=== PATIENT | female | born 1945 | race Caucasian/White ===

== ENCOUNTER → 2017-11-08 10:03 | Outpatient (CLI) | payer MEDICARE ==
[~2017-11-08 10:03] MED LIST: ADVAIR 500/501 DISK INH; ATIVAN0.5 MG PO; CYCLOBENZAPRINE10 MG PO; ESTRACE 0.5 MG0.5 MG PO; HCTZ25 MG PO; LISINOPRIL10 MG PO; PROAIR HFA8.5 GM INH; PROTONIX40 MG PO; SINGULAIR10 MG PO; XALATAN 0.0052.5 ML LEFT EYE; ZYRTEC10 MG PO
[2017-11-08 11:02] VITALS: BP 139/79
== END | disposition home or self-care (01) ==
LOC: D.OPS 10:03
DX: E87.1 Hypo-osmolality and hyponatremia (principal)

== ENCOUNTER 2017-12-07 22:05 | Inpatient (IN) | payer MEDICARE ==
[~2017-12-07] VITALS: Ht 165.1 cm; Wt 46.1 kg
[2017-12-07 22:40] LABS: APPEARANCE CLEAR (CLEAR); BILIRUBIN NEGATIVE (NEGATIVE); COLOR YELLOW (YELLOW); GLUCOSE NEGATIVE (NEGATIVE); KETONE NEGATIVE (NEGATIVE); NITRITE NEGATIVE (NEGATIVE); PROTEIN NEGATIVE (NEGATIVE); UROBILINOGEN NORMAL (NORMAL)
[2017-12-07 23:13] LABS: BASOPHILS 0.3 % (0-2); EOSINOPHILS 0.9 % (0-7); HEMATOCRIT 32.2 % (36.0-48.0); HEMOGLOBIN 11.3 g/dL (12-16); LYMPHOCYTES 21.3 % (15-50); MCH 30.7 pg (26.0-34.0); MCHC 35.1 g/dL (31.0-37.0); MCV 87.5 fL (80.0-100.0); MEAN PLATELET VOLUME 10.4 fL (7.4-10.4); MONOCYTES 8.2 % (2-11); NEUTROPHILS 69.3 % (40-80); PLATELET COUNT 264 10x3/uL (130-400); RBC 3.68 10x6/uL (4.00-5.40); RDW 12.3 % (11.5-14.5); WBC 5.8 10x3/uL (4.8-10.8)
[2017-12-07 23:25] LABS: ALBUMIN 3.7 g/dL (3.4-5.0); ALKALINE PHOSPHATASE 56 U/L (46-116); ALT (SGPT) 15 U/L (10-68); CALC OSMOLALITY 252 mosm/kg (275-300); CALCIUM 8.5 mg/dL (8.5-10.1); CARBON DIOXIDE 25.6 mmol/L (21.0-32.0); CHLORIDE - SERUM 92 mmol/L (98-107); CREATININE - SERUM 0.5 mg/dL (0.6-1.3); GLUCOSE 113 mg/dL (74-106); POTASSIUM - SERUM 3.1 mmol/L (3.5-5.1); PROTEIN - SERUM 6.8 g/dL (6.4-8.2); SODIUM 127 mmol/L (136-145); UREA NITROGEN 5 mg/dL (7-18); eGFR NON AFRICAN AMERICAN > 90 mL/min (90-120)
[2017-12-07 23:57] LABS: CREATINE KINASE 94 UL (21-215)
[2017-12-08] LABS: TROPONIN-I < 0.017 ng/mL (0.000-0.060)
[2017-12-08 00:53] LABS: AMYLASE - SERUM 32 U/L (25-115)
[2017-12-08 00:55] LABS: LIPASE 49 U/L (73-393)
[2017-12-08] MEDS ORDERED: ADVAIR 500/501 DISK INH (06:01)
[2017-12-08] MEDS ORDERED: ATIVAN0.5 MG PO (06:01)
[2017-12-08] MEDS ORDERED: SINGULAIR10 MG PO (06:01)
[2017-12-08] MEDS ORDERED: PROAIR HFA8.5 GM INH (06:01)
[2017-12-08] MEDS ORDERED: ESTRACE 0.5 MG0.5 MG PO (06:02)
[2017-12-08] MEDS ORDERED: XALATAN 0.0052.5 ML LEFT EYE (06:02)
[2017-12-08] MEDS ORDERED: ZYRTEC10 MG PO (06:02)
[2017-12-08] MEDS ORDERED: CYCLOBENZAPRINE10 MG PO (06:03)
[2017-12-08 08:33] VITALS: BP 142/68
[2017-12-08 13:06] VITALS: Ht 165.1 cm; Wt 46.1 kg
[2017-12-08 13:08] VITALS: BP 146/72
[2017-12-08 15:23] VITALS: BP 147/67
[2017-12-08 20:00] VITALS: BP 143/75
[2017-12-08] MEDS ORDERED: HCTZ25 MG PO (22:43)
[2017-12-08 23:22] LABS: CKMB 1.5 U/L (0.0-3.6); CREATINE KINASE 158 UL (21-215)
[2017-12-08 23:23] LABS: TROPONIN-I < 0.017 ng/mL (0.000-0.060)
[2017-12-09 04:00] VITALS: BP 138/70
[2017-12-09 05:28] LABS: BASOPHILS 0.4 % (0-2); EOSINOPHILS 2.6 % (0-7); HEMATOCRIT 33.5 % (36.0-48.0); HEMOGLOBIN 11.4 g/dL (12-16); LYMPHOCYTES 31.4 % (15-50); MCH 30.4 pg (26.0-34.0); MCV 89.3 fL (80.0-100.0); MEAN PLATELET VOLUME 11.2 fL (7.4-10.4); MONOCYTES 9.8 % (2-11); NEUTROPHILS 55.8 % (40-80); PLATELET COUNT 241 10x3/uL (130-400); RBC 3.75 10x6/uL (4.00-5.40); RDW 12.6 % (11.5-14.5); WBC 5.1 10x3/uL (4.8-10.8)
[2017-12-09 05:51] LABS: ALBUMIN 3.2 g/dL (3.4-5.0); ALKALINE PHOSPHATASE 46 U/L (46-116); ALT (SGPT) 15 U/L (10-68); CALC OSMOLALITY 266 mosm/kg (275-300); CALCIUM 8.2 mg/dL (8.5-10.1); CARBON DIOXIDE 23.6 mmol/L (21.0-32.0); CHLORIDE - SERUM 104 mmol/L (98-107); CREATININE - SERUM 0.5 mg/dL (0.6-1.3); GLUCOSE 90 mg/dL (74-106); PROTEIN - SERUM 6.2 g/dL (6.4-8.2); SODIUM 135 mmol/L (136-145); UREA NITROGEN 5 mg/dL (7-18); eGFR NON AFRICAN AMERICAN > 90 mL/min (90-120)
[2017-12-09 05:53] LABS: POTASSIUM - SERUM 2.9 mmol/L (3.5-5.1)
[2017-12-09 06:07] LABS: CREATINE KINASE 69 UL (21-215)
[2017-12-09 06:08] LABS: TROPONIN-I < 0.017 ng/mL (0.000-0.060)
[2017-12-09 09:56] VITALS: BP 132/63
[2017-12-09 12:23] VITALS: BP 159/75
[2017-12-09 16:59] VITALS: BP 163/77
[2017-12-09 20:33] VITALS: BP 158/74
[2017-12-10 00:41] VITALS: BP 161/71
[2017-12-10 05:50] VITALS: BP 157/73
[2017-12-10 08:13] VITALS: BP 154/71
[2017-12-10 11:25] VITALS: BP 146/69
[2017-12-10 11:58] LABS: CALC OSMOLALITY 266 mosm/kg (275-300); CALCIUM 8.1 mg/dL (8.5-10.1); CARBON DIOXIDE 25.7 mmol/L (21.0-32.0); CHLORIDE - SERUM 101 mmol/L (98-107); CREATININE - SERUM 0.6 mg/dL (0.6-1.3); GLUCOSE 91 mg/dL (74-106); SODIUM 135 mmol/L (136-145); UREA NITROGEN 4 mg/dL (7-18); eGFR NON AFRICAN AMERICAN > 90 mL/min (90-120)
[2017-12-10 11:59] LABS: POTASSIUM - SERUM 3.7 mmol/L (3.5-5.1)
[2017-12-10] MEDS ORDERED: LISINOPRIL10 MG PO (12:53)
== END 2017-12-10 14:50 | disposition home or self-care (01) | DRG 641 ==
LOC: D.ER 22:05 → D.M2 12-08 04:44
PROVIDERS: Family Medicine; Nurse Practitioner Family
DX: E87.1 Hypo-osmolality and hyponatremia (principal); I10 Essential (primary) hypertension; E87.6 Hypokalemia; K59.09 Other constipation; J44.9 Chronic obstructive pulmonary disease, unspecified

== ENCOUNTER 2017-12-21 20:51 | Emergency (ER) | payer MEDICARE ==
[~2017-12-21 20:51] MED LIST changes: -PROTONIX40 MG PO
[2017-12-21 23:22] LABS: BASOPHILS 0.5 % (0-2); EOSINOPHILS 2.6 % (0-7); HEMATOCRIT 37.2 % (36.0-48.0); HEMOGLOBIN 12.7 g/dL (12-16); LYMPHOCYTES 22.1 % (15-50); MCH 30.8 pg (26.0-34.0); MCHC 34.1 g/dL (31.0-37.0); MCV 90.3 fL (80.0-100.0); MEAN PLATELET VOLUME 10.9 fL (7.4-10.4); MONOCYTES 9.5 % (2-11); NEUTROPHILS 65.3 % (40-80); RBC 4.12 10x6/uL (4.00-5.40); RDW 12.9 % (11.5-14.5); WBC 6.6 10x3/uL (4.8-10.8)
[2017-12-21 23:26] LABS: PLATELET COUNT 309 10x3/uL (130-400)
[2017-12-21 23:37] LABS: ALBUMIN 4.1 g/dL (3.4-5.0); ALKALINE PHOSPHATASE 75 U/L (46-116); ALT (SGPT) 20 U/L (10-68); CALC OSMOLALITY 272 mosm/kg (275-300); CALCIUM 9.1 mg/dL (8.5-10.1); CARBON DIOXIDE 29.1 mmol/L (21.0-32.0); CHLORIDE - SERUM 100 mmol/L (98-107); CREATININE - SERUM 0.6 mg/dL (0.6-1.3); GLUCOSE 103 mg/dL (74-106); POTASSIUM - SERUM 3.9 mmol/L (3.5-5.1); PROTEIN - SERUM 7.7 g/dL (6.4-8.2); SODIUM 137 mmol/L (136-145); UREA NITROGEN 11 mg/dL (7-18); eGFR NON AFRICAN AMERICAN > 90 mL/min (90-120)
[2017-12-21 23:54] LABS: APPEARANCE CLEAR (CLEAR); BILIRUBIN NEGATIVE (NEGATIVE); COLOR YELLOW (YELLOW); GLUCOSE NEGATIVE (NEGATIVE); KETONE NEGATIVE (NEGATIVE); NITRITE NEGATIVE (NEGATIVE); PROTEIN NEGATIVE (NEGATIVE); UROBILINOGEN NORMAL (NORMAL)
== END 2017-12-22 00:53 | disposition home or self-care (01) ==
LOC: D.ER 20:51
PROVIDERS: Emergency Medicine
DX: I10 Essential (primary) hypertension (principal); J44.9 Chronic obstructive pulmonary disease, unspecified

== ENCOUNTER 2017-12-29 11:58 | Observation (INO) | payer MEDICARE ==
[~2017-12-29] VITALS: Ht 162.6 cm; Wt 55.6 kg
--- NOTE | ~2017-12-29 | OP ---
PATIENT NAME: MARCO HORNER MEDICAL RECORD: [id number] :43 LOCATION:D.M2 D.2120 ADMISSION DATE:12/29/17 SURGEON: MIHAI HOUSER MD DATE OF OPERATION: 12/30/2017 PROCEDURES: 1. Left heart catheterization. 2. Selective coronary angiography. 3. Left ventriculogram. INDICATION: Chest pain compatible with angina, shortness of breath, COPD. PROCEDURE IN DETAIL: After informed consent was obtained and after a detailed description of the risks, benefits as well as alternative therapies, the patient elected to proceed with angiogram. The right radial area was prepped and draped in normal sterile fashion. Right radial artery was cannulated via modified Seldinger technique with placement of 5-Setswana sheath. All catheters exchanged through this sheath. FINDINGS: The left ventriculogram was performed in standard 30 degree DEXTER view reveals excellent cardiac wall motion throughout all segments. Overall ejection fraction estimated 60%. SELECTIVE CORONARY ANGIOGRAPHY: Left main, left anterior descending, left circumflex, right coronary artery are all smooth-walled vessels with no angiographic evidence of coronary artery disease. OVERALL IMPRESSION: 1. No angiographic evidence of coronary artery disease. 2. Normal left heart pressures. 3. Normal left ventricular systolic function. Chest pain and shortness of breath is secondary to COPD. No other cardiac workup treatment is necessary. TRANSINT:[id number] Voice Confirmation ID: [id number] DOCUMENT ID: [id number] MIHAI HOUSER MD at 1006 CC: [id number] DICTATION DATE: 01/02/18 1048 WEB DESIGN INTERN: 01/02/18 1140 DIS IN 12/31/17 [place] [address]
--- NOTE | ~2017-12-29 | HEMODYNAMI ---
PATIENT:MARCO HORNER MEDICAL RECORD: [id number] : 43 LOCATION:[facility] D.2120 ADMISSION DATE: 12/29/17 Generatedon:12/30/201715:14 Patient name: MARCO HORNER Patient #: [id number] SSN: DO B: 1945 Date of study: 12/30/2017 Page: Of Hemodynamic Procedure Report Patient Data Patient Demographics Procedure consent was obtained First Name: MARCO Gender: Female Last Name: SIRI : 1945 [facility] Initial: ALICIA Age: 72 year(s) Patient #: [id number] Race: Unknown Additional ID: [id number] Contact details Address: [address] [place] [address] State: [place] City: [facility] Zip code: [address] Past Medical History Allergies Allergen Reaction Date Comments Reported Codeine 12/30/2017 Sulfa drugs 12/30/2017 Admission Admission Data Admission Date: 12/29/2017 Admission Time: 17:31 Admit Source: Other Room #: D.2120 Lab Results Lab Result Date: 12/30/2017 Lab Result Time: 0:30 Biochemistry Name Units Result Min Max BUN mg/dl 8 --(*---)-- 7 18 Creatinine mg/dl 0.7 --(*---)-- 0.6 1.3 CBC Name Units Result Min Max Hematocrit % 36.9 *-(----)-- 42 54 Hemoglobin g/dl 12.8 -*(----)-- 13.5 17.5 Procedure Procedure Types Cath Procedure Diagnostic Procedure LHC LHC w/Coronaries Procedure Description Procedure Date Procedure Date: 12/30/2017 Procedure Start Time: 15:04 Procedure End Time: 15:13 Procedure Staff Name Function Gage Sultana MD Performing Physician Olman Gonsalez RT Monitor Emmanuel Calderon RT Scrub Yaniv Becerril RN Nurse Procedure Data Cath Procedure Fluoroscopy Diagnostic fluoroscopy Total fluoroscopy Time: 0.8 time: 0.8 min min Diagnostic fluoroscopy Total fluoroscopy dose: dose: 26.6 mGy 26.6 mGy Contrast Material Contrast Material Type Amount (ml) Isovue 300 50 Entry Location Entry Primary Successful Side Size Upsize Upsize Entry Closure Succes sful Closure Location (Fr) 1 (Fr) 2 (Fr) Remarks Device Remarks Femoral Right 6 Fr Exoseal artery Short Estimated blood loss: 5 ml Diagnostic catheters Device Type Used For End Catheter Placement MULTIPACK Pigtail 5 Fr Procedure catheter MULTIPACK JL 4.0 5Fr Procedure catheter MULTIPACK 3DRC 5Fr Procedure catheter Procedure Medications Medication Administration Route Dosage Oxygen etCO2 Nasal cannula 2 l/min Heparin Flush Bag added to field 2 bags (1000units/500ml NS) 0.9% NaCl I.V. 100 ml/hr Fentanyl I.V. 50 mcg Versed I.V. 1 mg Fentanyl I.V. 50 mcg Versed I.V. 1 mg Hemodynamics Rest HGB: 12.8 (g/dl) Heart Rate: 86 (bpm) Snapshots Pre Cath Intra NCS Post Cath Vital Signs Time Heart Resp SPO2 etCO2 NIBP (mmHg) Rhythm Pain Sedation Rate (ipm) (%) (mmHg) Status Level (bpm) 14:48:15 100 17 100 29.9 160/79(124) NSR 0 (11) 10(A) , No pain 14:52:30 85 16 100 30.7 147/79(105) NSR 0 (11) 10(A) , No pain 14:56:50 85 17 100 31.4 163/74(109) NSR 0 (11) 10(A) , No pain 15:01:13 82 16 100 33.7 130/66(93) NSR 0 (11) 10(A) , No pain 15:05:31 82 17 99 32.2 127/61(94) NSR 0 (11) 9(A) , No pain 15:09:20 80 9 100 29.9 116/62(93) NSR 0 (11) 9(A) , No pain 15:13:30 78 10 100 29.9 122/64(89) NSR 0 (11) 9(A) , No pain Medications Time Medication Route Dose Verified Delivered Reason Notes Effe ctiveness by by 14:53:53 Oxygen etCO2 2 Gage Purvis Per Nasal l/min Kayy Becerril RN physician cannula 14:57:38 Heparin Flush added 2 Gage Purvis used for Bag to bags Kayy Becerril occupational therapy program director (1000units/500ml field NS) 14:57:48 0.9% NaCl I.V. 100 Gage Purvis Per ml/hr Kayy Becerril RN physician 15:01:05 Fentanyl I.V. 50 Gage Peterseny for [facility] [place] Kayy Becerril RN sedation 15:01:12 Versed I.V. 1 mg Gage Purvis for Kayy Becerril RN sedation 15:04:21 Fentanyl I.V. 50 Gage Peterseny for mcg Kayy Becerril RN sedation 15:04:26 Versed I.V. 1 mg Gage Peterseny for Kayy Becerril RN sedation Procedure Log Time Note 14:20:14 Olman Gonsalez RT(R) (CV) sent for patient. Start room use. 14:25:55 Informed consent obtained and on chart 14:25:59 Admit Source: Other 14:26:13 Diagnostic Cath status Elective 14:26:15 Time tracking: Regular hours (M-F 7:00 - 5:00) 14:26:18 Plan of Care:Hemodynamics will remain stable., Cardiac rhythm will remain stable., Comfort level will be maintained., Respiratory function will remain adequate., Patient/ family verbilizes understanding of procedure., Procedure tolerated without complication., Recovers from procedure without complications.. 14:28:08 H&P Date Dictated: 12/29/2017 Within 30 days and on chart.. 14:28:55 Lab Result : BUN 8 mg/dl 14:28:55 Lab Result : Creatinine 0.7 mg/dl 14:28:55 Lab Result : Hemoglobin 12.8 g/dl 14:28:55 Lab Result : Hematocrit 36.9 % 14:28:59 Lab results completed and on chart. 14:33:20 Patient received from PCU to CCL 3 Alert and oriented. Tansferred to table in Supine position. 14:33:21 Warm blankets applied, and nieves hugger turned on for patient comfort. 14:33:21 Correct patient and procedure confirmed by team. 14:33:22 ECG and BP/O2 sat monitors applied to patient. 14:47:01 Vital chart was started 14:47:02 Baseline sample Acquired. 14:47:07 Rhythm: sinus rhythm 14:47:10 Full Disclosure recording started 14:47:15 Pre-procedure instructions explained to patient. 14:47:16 Pre-op teaching completed and patient verbalized understanding. 14:47:18 Family unavailable. 14:47:28 Patient NPO since Midnight. 14:48:21 Patient allergic to Codeine 14:48:37 Patient allergic to Sulfa drugs 14:50:12 Is the patient allergic to Iodine/contrast media? No. 14:50:16 Is patient on blood thinner?Yes 14:50:18 Patient diabetic? No. 14:50:23 Patient not . Patient is over age 55. 14:50:29 ----Pre-sedation anethsthesia assessment.---- 14:50:34 Previous problem with sedation/anesthesia? No ? 14:51:29 Snore? No 14:51:30 Sleep apnea? No 14:51:33 Deviated septum? No 14:51:34 Opens mouth fully? Yes 14:51:36 Sticks out tongue? Yes 14:52:18 Airway obstruction? Yes COPD 14:52:50 Dentures? Yes IN 14:53:53 Oxygen 2 l/min etCO2 Nasal cannula was administered by Yaniv Becerril RN; Per physician; 14:57:38 Heparin Flush Bag (1000units/500ml NS) 2 bags added to field was administered by Yaniv Becerril RN; used for procedure; 14:57:43 ACC The patient was administered the following blood thiners within the last 24 hours: ACCPlavix 14:57:48 0.9% NaCl 100 ml/hr I.V. was administered by Yaniv Becerril RN; Per physician; 14:59:43 Pre procedure: right femoral pulse 2+ Normal; easily identifiable; not easily obliterated 14:59:47 Pre procedure: right dorsailis pedis pulse 1+ Palpable, but thready & weak; easily obliterated 14:59:51 Patient pain scale 0/10 ?. 15:00:03 IV patent on arrival in right hand with 0.9% [facility] at [facility]. 15:00:09 Right groin area was prepped with chlora-prep and draped in sterile fashion 15:00:11 Alarms reviewed by RSimon N. 15:00:11 Sharps counted by scrub and verified by RSimonN. 15:00: Physician arrived 15:00: --------ALL STOP TIME OUT------ 15:00:22 Final Timeout: patient, procedure, and site verified with staff and physician. All members of the team are in agreement. 15:00:26 Right groin site verified by team. 15:00:45 Physical assessment completed. ASA score P 2 - A patient with mild systemic disease as per Gage Sultana MD. 15:00:50 Sedation plan: IV Moderate Sedation Medication:Versed, Fentanyl 15:01:05 Fentanyl 50 mcg I.V. was administered by Yaniv Becerril RN; for sedation; 15:01:11 Zero performed for pressure channel P1 15:01:12 Versed 1 mg I.V. was administered by Yaniv Becerril RN; for sedation; 15:03:12 Zero performed for pressure channel P1 15:03:14 Zero performed for pressure channel P1 15:03:15 Zero performed for pressure channel P1 15:03:16 Zero performed for pressure channel P1 15:03:37 Use device set Femoral Dx 15:03:39 ACIST Syringe (68041) opened to sterile field. 15:03:39 Bag Decanter (2002S) opened to sterile field. 15:03:40 Medline Cath Pack ([id number]) opened to sterile field. 15:03:42 DIAGNOSTIC WIRE .035 260cm J wire (380645) opened to sterile field. 15:03:44 ACIST Hand Control (05874) opened to sterile field. 15:03:45 ACIST Manifold (09823) opened to sterile field. 15:03:46 DIAGNOSTIC Multipack 5Fr catheter set (XT2790) opened to sterile field. 15:03:47 Tegaderm 4 x 4 (1626W) opened to sterile field. 15:03:52 SHEATH Prelude 5Fr 0.035 ([id number]-6E-34-035) opened to sterile field. 15:04:21 Fentanyl 50 mcg I.V. was administered by Yaniv Becerril RN; for sedation; 15::26 Versed 1 mg I.V. was administered by Yaniv Becerril RN; for sedation; 15:04:31 Procedure started. 15:04:38 Local anesthetic to right femoral artery with Lidocaine 2% by Gage Sultana MD.INITIAL ACCESS ONLY 15:04:50 A 6 Fr Short sheath was inserted into the Right Femoral artery 15:05:55 A MULTIPACK Pigtail 5 Fr catheter was advanced over the wire and used for Procedure. 15:06:03 LV gram done using DEXTER 15:06:11 EF : 60 % 15:06:14 Catheter removed. 15:06:21 A MULTIPACK JL 4.0 5Fr catheter was advanced over the wire and used for Procedure. 15:06:34 LCA angiography performed. 15:06:37 Catheter removed. 15:06:43 A MULTIPACK 3DRC 5Fr catheter was advanced over the wire and used for Procedure. 15:06:46 RCA angiography performed. 15:06:55 Catheter removed. 15:07:00 EXOSEAL 5Fr (EX500) opened to sterile field. 15:07:21 Sheath removed intact; hemostasis achieved with Exoseal to the Right Femoral artery. 15:07:24 Procedure ended.(Physican Out) 15:07:31 Fluoroscopy time 00.80 minutes. 15:07:39 Fluoroscopy dose: 26.6 mGy 15:07:39 Flurop Dose total: 26.6 15:07:47 Contrast amount:Isovue 300 50ml. 15:07:51 Sharps counted by scrub and verified by R.N. 15:10:15 Insertion/operative site no bleeding no hematoma. 15:10:42 Post-op/insertion site Right Femoral artery dressed using a 4 x 4 and Tegaderm. 15:11:05 Post right femoral artery:stable 15:11:09 Post Procedure Pulses reassessed and unchanged 15:11:27 Post-procedure physical assessment completed. ASA score P 2 - A patient with mild systemic disease as per Gage Sultana MD. 15:11:31 Post procedure rhythm: unchanged. 15:11:35 Estimated blood loss: 5 ml 15:11:37 Post procedure instruction explained to patient.Patient verbalizes understanding. 15:11:37 Patient needs reinforcement of post procedure teaching. 15:13:01 Procedure and supply charges have been captured, reviewed, submitted and are correct. 15:13:02 Vital chart was stopped 15:13:03 See physician's report for complete and final results. 15:13:13 Report given to Pre/Post Procedure Room. 15:13:21 Patient transfered to Pre/Post Procedure Room with Stretcher. 15:13:31 Procedure ended. 15:13:31 Full Disclosure recording stopped 15:13:39 End room use (Document Last) Device Usage Item Name Manufacture Quantity Catalog Number Hospital Part Current M inimal Lot# / Charge Number Stock Stock Serial# Code ACIST Syringe Acist 1 06337 395876 101928 709932 2 0 (52684) [employer] Bag Decanter Microtek 1 2001S 002553 57648 161339 5 (2001S) Medical Inc. Medline Cath Cardinal 1 [id number] 785010 40413 237954 5 Pack Health ([id number]) DIAGNOSTIC WIRE [facility] [place] 1 785999 913673 382600 350649 3 0 .035 260cm J wire (487597) ACIST Hand Acist 1 16080 535047 947306 597918 5 Control (73667) [employer] Inc ACIST Manifold Acist 1 80564 135163 841393 422220 5 (42505) [employer] Inc DIAGNOSTIC Cardinal 1 [id number] 396691 25534 478645 3 0 Multipack 5Fr Health catheter set (SA8372) Tegaderm 4 x 4 3M 1 1626W 357849 009699 445240 5 (1626W) SHEATH Prelude Merit 1 DUH-1G-65-035 918700 422383 065841 5 5Fr 0.035 Medical ([id number]-4M-29-035) MULTIPACK Cardinal 1 815069 5 Pigtail 5 Fr Health catheter MULTIPACK JL Cardinal 1 [id number] 5 4.0 5Fr Health catheter MULTIPACK 3DRC Cardinal 1 [id number] 5 5Fr catheter Health EXOSEAL 5Fr Cardinal 1 EX500 288589 922952 875877 1 0 (EX500) Health Signature Audit [place] Stage Time Signature Unsigned Intra-Procedure 12/30/2017 Emmanuel Calderon 3:14:49 PM RT(R) Signatures Monitor : Olman Gonsalez RT Signature : Date : Time : [facility] [address] [place] [address]
[2017-12-29 12:36] LABS: BASOPHILS 0.9 % (0-2); HEMATOCRIT 36.9 % (36.0-48.0); HEMOGLOBIN 12.8 g/dL (12-16); IMMATURE GRANULOCYTES 0.2 % (0-5); LYMPHOCYTES 24.6 % (15-50); MCH 30.5 pg (26.0-34.0); MCHC 34.7 g/dL (31.0-37.0); MCV 87.9 fL (80.0-100.0); MEAN PLATELET VOLUME 10.7 fL (7.4-10.4); MONOCYTES 8.9 % (2-11); NEUTROPHILS 64.4 % (40-80); PLATELET COUNT 282 10x3/uL (130-400); RDW 12.6 % (11.5-14.5); WBC 5.7 10x3/uL (4.8-10.8)
[2017-12-29 12:52] LABS: ALBUMIN 4.1 g/dL (3.4-5.0); ALKALINE PHOSPHATASE 62 U/L (46-116); ALT (SGPT) 17 U/L (10-68); CALC OSMOLALITY 257 mosm/kg (275-300); CALCIUM 9.2 mg/dL (8.5-10.1); CARBON DIOXIDE 26.3 mmol/L (21.0-32.0); CHLORIDE - SERUM 94 mmol/L (98-107); CREATININE - SERUM 0.7 mg/dL (0.6-1.3); GLUCOSE 108 mg/dL (74-106); POTASSIUM - SERUM 3.6 mmol/L (3.5-5.1); PROTEIN - SERUM 7.6 g/dL (6.4-8.2); SODIUM 129 mmol/L (136-145); UREA NITROGEN 8 mg/dL (7-18); eGFR NON AFRICAN AMERICAN 87 mL/min (90-120)
[2017-12-29 13:06] LABS: CHOLESTEROL, TOTAL 152 mg/dL (0-200); CKMB 0.8 U/L (0.0-3.6); CREATINE KINASE 35 UL (21-215); HDL CHOLESTEROL 75 mg/dL (32-96); LDL CHOLESTEROL 70 mg/dL (0-100); LDL-HDL RATIO 0.9 ratio (1.5-3.5); TRIGLYCERIDE 39 mg/dL (30-200); TROPONIN-I < 0.017 ng/mL (0.000-0.060)
[2017-12-29 23:30] VITALS: BP 138/64
[2017-12-30 02:18] VITALS: Ht 162.6 cm; Wt 55.6 kg
[2017-12-30 04:00] VITALS: BP 114/65
[2017-12-30 07:52] VITALS: BP 130/60
[2017-12-30 11:24] LABS: BASOPHILS 0.6 % (0-2); EOSINOPHILS 1.4 % (0-7); HEMATOCRIT 39.3 % (36.0-48.0); HEMOGLOBIN 13.7 g/dL (12-16); IMMATURE GRANULOCYTES 0.2 % (0-5); LYMPHOCYTES 25.8 % (15-50); MCH 30.9 pg (26.0-34.0); MCHC 34.9 g/dL (31.0-37.0); MCV 88.7 fL (80.0-100.0); MEAN PLATELET VOLUME 11.6 fL (7.4-10.4); MONOCYTES 7.6 % (2-11); NEUTROPHILS 64.4 % (40-80); PLATELET COUNT 271 10x3/uL (130-400); RBC 4.43 10x6/uL (4.00-5.40); RDW 12.5 % (11.5-14.5)
[2017-12-30 11:28] VITALS: BP 155/75
[2017-12-30 11:33] LABS: CALC OSMOLALITY 265 mosm/kg (275-300); CARBON DIOXIDE 23.5 mmol/L (21.0-32.0); CHLORIDE - SERUM 99 mmol/L (98-107); CREATININE - SERUM 0.5 mg/dL (0.6-1.3); GLUCOSE 96 mg/dL (74-106); SODIUM 134 mmol/L (136-145); UREA NITROGEN 8 mg/dL (7-18); eGFR NON AFRICAN AMERICAN > 90 mL/min (90-120)
[2017-12-30 19:34] VITALS: BP 143/63
[2017-12-31] VITALS: BP 131/66
[2017-12-31 05:25] VITALS: BP 126/64
[2017-12-31 09:19] LABS: CALC OSMOLALITY 267 mosm/kg (275-300); CALCIUM 8.8 mg/dL (8.5-10.1); CARBON DIOXIDE 25.6 mmol/L (21.0-32.0); CHLORIDE - SERUM 97 mmol/L (98-107); CREATININE - SERUM 0.6 mg/dL (0.6-1.3); GLUCOSE 126 mg/dL (74-106); POTASSIUM - SERUM 3.5 mmol/L (3.5-5.1); SODIUM 133 mmol/L (136-145); UREA NITROGEN 12 mg/dL (7-18); eGFR NON AFRICAN AMERICAN > 90 mL/min (90-120)
[2017-12-31 10:05] VITALS: BP 133/63
[2017-12-31] MEDS ORDERED: PROTONIX40 MG PO (10:27)
[2017-12-31 13:21] VITALS: BP 123/69
== END 2017-12-31 14:54 | disposition home or self-care (01) ==
LOC: D.ER 11:58 → D.EDHOLD 17:31 → D.M2 17:31 → OBSVTIME 17:31 → D.M2 21:30
PROVIDERS: Emergency Medicine; Internal Medicine Interventional Cardiology; Internal Medicine Nephrology
DX: J44.9 Chronic obstructive pulmonary disease, unspecified (principal); I10 Essential (primary) hypertension; E87.1 Hypo-osmolality and hyponatremia; E87.6 Hypokalemia; K21.9 Gastro-esophageal reflux disease without esophagitis; E78.5 Hyperlipidemia, unspecified; F41.9 Anxiety disorder, unspecified

== ENCOUNTER 2018-01-05 16:32 | Emergency (ER) | payer MEDICARE ==
[~2018-01-05 16:32] MED LIST changes: +PROTONIX40 MG PO
[2018-01-05 17:30] LABS: ALBUMIN 3.8 g/dL (3.4-5.0); ALKALINE PHOSPHATASE 55 U/L (46-116); ALT (SGPT) 14 U/L (10-68); CALC OSMOLALITY 266 mosm/kg (275-300); CALCIUM 9.2 mg/dL (8.5-10.1); CARBON DIOXIDE 25.8 mmol/L (21.0-32.0); CHLORIDE - SERUM 99 mmol/L (98-107); CREATININE - SERUM 0.5 mg/dL (0.6-1.3); GLUCOSE 127 mg/dL (74-106); POTASSIUM - SERUM 3.6 mmol/L (3.5-5.1); PROTEIN - SERUM 7.2 g/dL (6.4-8.2); SODIUM 133 mmol/L (136-145); UREA NITROGEN 10 mg/dL (7-18); eGFR NON AFRICAN AMERICAN > 90 mL/min (90-120)
[2018-01-05 17:42] LABS: CKMB 0.7 U/L (0.0-3.6); CREATINE KINASE 35 UL (21-215)
[2018-01-05 17:45] LABS: TROPONIN-I < 0.017 ng/mL (0.000-0.060)
[2018-01-05 17:58] LABS: BASOPHILS 0.4 % (0-2); EOSINOPHILS 0.7 % (0-7); HEMATOCRIT 35.2 % (36.0-48.0); HEMOGLOBIN 12.1 g/dL (12-16); IMMATURE GRANULOCYTES 0.2 % (0-5); LYMPHOCYTES 7.3 % (15-50); MCH 30.8 pg (26.0-34.0); MCHC 34.4 g/dL (31.0-37.0); MCV 89.6 fL (80.0-100.0); MEAN PLATELET VOLUME 10.9 fL (7.4-10.4); MONOCYTES 6.1 % (2-11); NEUTROPHILS 85.3 % (40-80); PLATELET COUNT 284 10x3/uL (130-400); RBC 3.93 10x6/uL (4.00-5.40); RDW 12.5 % (11.5-14.5); WBC 12.7 10x3/uL (4.8-10.8)
== END 2018-01-05 20:30 | disposition home or self-care (01) ==
LOC: D.ER 16:32
PROVIDERS: Family Medicine
DX: R07.9 Chest pain, unspecified (principal); J44.9 Chronic obstructive pulmonary disease, unspecified; Q61.3 Polycystic kidney, unspecified; E87.1 Hypo-osmolality and hyponatremia; I10 Essential (primary) hypertension; I44.4 Left anterior fascicular block

== ENCOUNTER 2018-03-09 08:23 | Outpatient (CLI) | payer MEDICARE | END 2018-03-09 08:24 | disposition home or self-care (01) | LOC: D.MAMMO 08:23 | DX: Z12.31 Encounter for screening mammogram for malignant neoplasm of breast (principal) ==

== ENCOUNTER → 2018-11-23 09:50 | Outpatient (CLI) | payer MEDICARE | END | disposition home or self-care (01) | LOC: D.CT 09:30 → D.RT 10:00 → D.CT 10:30 → D.RT 11:00 → D.CT 12-01 09:30 | PROVIDERS: ATTEND Internal Medicine Pulmonary Disease | DX: R93.89 Abnormal findings on diagnostic imaging of other specified body structures (principal) ==

== ENCOUNTER → 2019-06-20 10:21 | Outpatient (CLI) | payer MEDICARE | END | disposition home or self-care (01) | LOC: D.CT 05-28 10:30 | PROVIDERS: ATTEND Internal Medicine Pulmonary Disease | DX: R91.1 Solitary pulmonary nodule (principal) ==

== ENCOUNTER 2019-06-27 09:00 | Outpatient (CLI) | payer MEDICARE | END 2019-06-27 10:00 | disposition home or self-care (01) | LOC: D.MAMMO 09:00 | PROVIDERS: ATTEND Nurse Practitioner Family | DX: N64.4 Mastodynia (principal) ==

== ENCOUNTER 2020-03-30 00:08 | Observation (INO) | payer MEDICARE ==
[~2020-03-30] VITALS: Ht 162.6 cm; Wt 64.1 kg
[2020-03-30] VITALS (7 sets, daily range): BP systolic 119–179; BP diastolic 61–81; Ht 162.6 cm; Wt 64.1 kg
--- NOTE | ~2020-03-30 | EC ---
PATIENT:MARCO HORNER DATE OF SERVICE: 03/30/20 SEX: F MEDICAL RECORD: [id number] DATE OF : 43 LOCATION:D.M2 D.210 AGE OF PATIENT: 74 ADMISSION DATE: 03/30/20 REFERRING PHYSICIAN: INTERPRETING PHYSICIAN: MACARIO WILDE MD ECHOCARDIOGRAM REPORT ECHO CHARGES 4 ECHO COMPLETE Date: 03/30/20 CLINICAL DIAGNOSIS: LVH/HTN ECHOCARDIOGRAPHIC MEASUREMENTS (adult normal given) AC root (d.<3.7cm) 3.1 cm LV Septum d (<1.2 cm> 1.1 cm Valve Excursion 1.7 cm LV Septum (systole) 1.3 cm Left Atria (s.<4.0cm> 3.5 cm LVPW d(<1.2cm) 1.4 cm RV (d.<2.3cm) 3.3 cm LVPW (sytole) 1.5 cm LV diastole(<5.6CM) 5.2 cm MV E-F(>70mm/sec) cm LV systole 3.7 cm LVOT Diameter 1.8 cm MV exc.(>10mm) 1.6 cm Est.ejection fraction (50-75%) % DOPPLER: LVIT cm/sec A 76.0 cm/sec E 95.0 cm/sec LA cm/sec RVSP 29 mmHg LVOT 107 cm/sec AOP1/2T m/s Asc. Ao 145 cm/sec RVOT 75 cm/sec RA cm/sec PA 127 cm/sec AV Gradient Peak 8.38 mmHg AV Mean 4.11 mmHg AV Area 1.6 cm MV Gradient Peak 3.95 mmHg MV Mean 1.73 mmHg MV Area cm COMMENTS: Porcelain Buildup Assistant: 2 ENDY TAMEZ Flosser: 4 Dr. Wilde TAPE# [PACS Pericardial Effusion N DATE OF SERVICE: PROCEDURE: Transthoracic echocardiogram. FINDINGS: 1. Left ventricle is hyperdynamic. Ejection fraction 65%. 2. The left atrium is normal size, shape, structure, and function. Aortic valve is normal. ECHOCARDIOGRAM REPORT [id number] MARCO HORNER Mitral valve is normal. Tricuspid valve has mild tricuspid regurgitation, but otherwise normal. The right ventricular systolic pressure is normal. The right ventricle is upper limits of normal to mildly dilated. The right atrium is normal size, shape, structure, and function. Pulmonic valve is normal. TRANSINT:[id number] Voice Confirmation ID: [id number] DOCUMENT ID: [id number] MACARIO WILDE MD CC: [id number] DICTATION DATE: 03/30/20 162 ASSISTANT FLOOR COVERING PRINTER: 03/30/20 2359 ADM IN [facility] [address] [place] [id number]
[2020-03-30] MEDS ORDERED: NORVASC5 MG PO (00:25)
[2020-03-30] MEDS ORDERED: ALBUTEROL2.5 MG/3 M INH (00:29)
[2020-03-30 00:50] LABS: BASOPHILS 0.7 % (0-2); EOSINOPHILS 1.8 % (0-7); HEMATOCRIT 36.2 % (36.0-48.0); HEMOGLOBIN 12.1 g/dL (12-16); IMMATURE GRANULOCYTES 0.1 % (0-5); LYMPHOCYTES 18.2 % (15-50); MCH 30.3 pg (26.0-34.0); MCHC 33.4 g/dL (31.0-37.0); MCV 90.5 fL (80.0-100.0); MEAN PLATELET VOLUME 11.5 fL (7.4-10.4); MONOCYTES 7.3 % (2-11); NEUTROPHILS 71.9 % (40-80); PLATELET COUNT 248 10x3/uL (130-400); RDW 12.9 % (11.5-14.5); WBC 7.2 10x3/uL (4.8-10.8)
[2020-03-30 00:51] LABS: CALC OSMOLALITY 270 mosm/kg (275-300); CALCIUM 9.4 mg/dL (8.5-10.1); CARBON DIOXIDE 23.7 mmol/L (21.0-32.0); CHLORIDE - SERUM 103 mmol/L (98-107); CREATININE - SERUM 0.7 mg/dL (0.6-1.3); GLUCOSE 143 mg/dL (74-106); POTASSIUM - SERUM 3.8 mmol/L (3.5-5.1); SODIUM 135 mmol/L (136-145); UREA NITROGEN 10 mg/dL (7-18); eGFR NON AFRICAN AMERICAN 86 mL/min (90-120)
[2020-03-30 00:54] LABS: APTT 24.1 SECONDS (22.8-39.4); INR 1.01 (0.85-1.17); PROTIME 13.2 SECONDS (11.6-15.0)
[2020-03-30 01:11] LABS: ALBUMIN 3.9 g/dL (3.4-5.0); ALKALINE PHOSPHATASE 82 U/L (30-120); ALT (SGPT) 12 U/L (10-68); BILIRUBIN - TOTAL 0.29 mg/dL (0.2-1.3); CKMB 1.3 U/L (0.0-3.6); CREATINE KINASE 57 UL (21-215); MAGNESIUM - SERUM 1.9 mg/dL (1.8-2.4); PROTEIN - SERUM 7.2 g/dL (6.4-8.2); TROPONIN-I < 0.017 ng/mL (0.000-0.060)
[2020-03-30 01:46] LABS: BILIRUBIN NEGATIVE (NEGATIVE); GLUCOSE NEGATIVE (NEGATIVE); KETONE NEGATIVE (NEGATIVE); NITRITE NEGATIVE (NEGATIVE); UROBILINOGEN NORMAL (NORMAL)
[2020-03-30 01:54] LABS: UDS - AMPHET NEGATIVE QUAL (NEGATIVE); UDS - BARB NEGATIVE QUAL (NEGATIVE); UDS - BENZO NEGATIVE QUAL (NEGATIVE); UDS - COCAINE NEGATIVE QUAL (NEGATIVE); UDS - OPIATE NEGATIVE QUAL (NEGATIVE); UDS - PCP NEGATIVE QUAL (NEGATIVE); UDS - THC NEGATIVE QUAL (NEGATIVE)
[2020-03-30] MEDS ORDERED: LISINOPRIL2.5 MG PO (03:33)
--- NOTE | 2020-03-30 04:10 | NUR ---
RECIEVED REPORT FROM BETTY COREAS IN ER AT 0234. ARRIVED TO FLOOR IN W/C ACCOMPANIED BY STAFF AT 0305. ALERT AND ORIENTED X4. UP AD AKBAR TO B/R IV TO AC SL. O2@ 2 LITERS PER N/C. NO C/O CHEST PAIN AND DENIES ANY PAIN AT THIS TIME. ASSESSMENT COMPLETED.
--- NOTE | 2020-03-30 07:20 | NUR ---
RECIEVE REPORT. ALERT AND ORIENTED X4. LAB AT BEDSIDE DRAWING BLOOD. DENIES ANY NEEDS. CONTINUE PLAN OF CARE AND SAFETY PRECAUTIONS.
--- NOTE | 2020-03-30 19:23 | NUR ---
RECIEVED UP IN BED WITH EYES CLOSED. ANXIOUS AT THIS TIME WITH CONCERNS OF HEALTH. CHECKED TELEMETRY AND SR AT THIS TIME. TOLD HER WHAT HER HEART RAT AND RHYTHM ARE AND SHE SEEM TO CALM DOWN. DOES TAKE ATIVAN TID AND MAYBE SHE IS JUST AN ANXIOUS PERSON. DENIES ANY OTHER NEEDS.
--- NOTE | 2020-03-30 20:54 | NUR ---
C/O CHEST AND ARM PAIN. SYSTOLIC ELEVATED. HOWEVER SHE IS SEVERLY ANXIOUS. GAVE PM MEDS AND SHE STATED " THIS IS WHAT HAPPENS WHEN I DON'T GET MY MEDICATION ON BALTAZAR. MY DOCTOR TOLD ME TO TAKE MY B/P MEDS IN THE MORNING AND AT 1600. THEY WOULD'NT GIVE ME MY B/P MEDICATION THIS MORNING. THEN FINALLY I GOT IT AND IT WAS LATE."SHE IS VERY FOCUSED ON HER MEDICATIONS AND WHAT IS WRONG WITH HER. EXPLAINED SHE NEEDED TO CALM DOWN AND LET HER ATIVAN AND B/P MEDS WORK. AND THAT WE WOULD RETAKE HER B/P.
[2020-03-31 00:30] VITALS: BP 125/66
[2020-03-31 04:36] VITALS: BP 108/55
[2020-03-31 05:25] LABS: CALC OSMOLALITY 270 mosm/kg (275-300); CHLORIDE - SERUM 102 mmol/L (98-107); CREATININE - SERUM 0.6 mg/dL (0.6-1.3); GLUCOSE 106 mg/dL (74-106); POTASSIUM - SERUM 3.9 mmol/L (3.5-5.1); SODIUM 136 mmol/L (136-145); UREA NITROGEN 10 mg/dL (7-18); eGFR NON AFRICAN AMERICAN > 90 mL/min (90-120)
[2020-03-31 05:33] LABS: BASOPHILS 0.5 % (0-2); EOSINOPHILS 2.5 % (0-7); HEMATOCRIT 35.7 % (36.0-48.0); HEMOGLOBIN 11.8 g/dL (12-16); IMMATURE GRANULOCYTES 0.2 % (0-5); LYMPHOCYTES 33.3 % (15-50); MCH 29.9 pg (26.0-34.0); MCHC 33.1 g/dL (31.0-37.0); MCV 90.6 fL (80.0-100.0); MEAN PLATELET VOLUME 11.6 fL (7.4-10.4); MONOCYTES 10.4 % (2-11); NEUTROPHILS 53.1 % (40-80); PLATELET COUNT 264 10x3/uL (130-400); RBC 3.94 10x6/uL (4.00-5.40); RDW 13.1 % (11.5-14.5)
[2020-03-31 08:16] VITALS: BP 104/47
[2020-03-31] MEDS ORDERED: CATAPRES0.1 MG PO (12:19)
[2020-03-31 12:48] VITALS: BP 156/66
--- NOTE | 2020-03-31 13:07 | MORECARE ---
CASE MANAGEMENT DISCHARGE SUMMARY PATIENT: MARCO HORNER UNIT: [id number] ADM DATE: 03/30/20 AGE: 74 : 44 SEX: F ROOM/BED: D.2105 AUTHOR: MAXX MONTEZ PHYSICIAN: REFERRING PHYSICIAN: BRANDEE JACKSON MD DATE OF SERVICE: 03/31/20 Discharge Plan Patient Name: MARCO HORNER [facility] [facility] 1945 Planned Disposition: Home Anticipated Discharge Date: 03/31/20 Discharge Date: Expected LOS: 1 Initial Reviewer: [email or web address] Initial Review Date: 03/30/2020 Generated: 03/31/20 2:07 pm Coverage Notice Reviewer: [email or web address] Karen Dominguez Notice Issued Date-Time: 03/30/2020 14:25 Notice Type: Medicare Outpatient Observation Notice Notice Delivered To: Patient Relationship to Patient: Banquet Pilot Name: Delivery Method: HAND - Hand Delivered Simran Days: Prior Verbal Notification: Recipient Understood Notice: Yes Recipient Signature: Yes Med Rec Note Co-signed by Attending: Coverage Notice Comment: Patient Name: MARCO HORNER Page [phone] at 1307 All edits/amendments must be made on the electronic document DICTATION DATE: 03/31/20 1307 CARPENTER ROUGH: SELENE 03/31/20 1307 RPT#: [id number] DC DATE: STATUS: ADM IN [facility] [address] [place] [address] END OF REPORT
--- NOTE | 2020-04-01 08:49 | MORECARE ---
CASE MANAGEMENT DISCHARGE SUMMARY PATIENT: MARCO HORNER UNIT: [id number] ADM DATE: 03/30/20 AGE: 74 : 44 SEX: F ROOM/BED: D.2106 AUTHOR: MAXX MONTEZ PHYSICIAN: REFERRING PHYSICIAN: BRANDEE JACKSON MD DATE OF SERVICE: 04/01/20 Discharge Plan Patient Name[facility]CO [facility]ORNER [facility] [facility] 1945 Planned Disposition: Home Anticipated Discharge Date: 03/31/20 Discharge Date: 03/31/2020 Expected LOS: 1 Initial Reviewer: [email or web address] Initial Review Date: 03/30/2020 Generated: 04/01/20 9:48 am Coverage Notice Reviewer: [email or web address] Karen Dominguez Notice Issued Date-Time: 03/30/2020 14:25 Notice Type: Medicare Outpatient Observation Notice Notice Delivered To: Patient Relationship to Patient: Marble Cutter Operator Name: Delivery Method: HAND - Hand Delivered Simran Days: Prior Verbal Notification: Recipient Understood Notice: Yes Recipient Signature: Yes Med Rec Note Co-signed by Attending: Coverage Notice Comment: Last DP export: 03/31/20 12:07 p Patient Name: MARCO HORNER Page [phone] at 0849 All edits/amendments must be made on the electronic document DICTATION DATE: 04/01/2048 COMMERCIAL DEVELOPMENT MANAGER: SELENE 04/01/20 0848 RPT#: [id number] DC DATE:03/31/20 STATUS: DIS IN [facility] [address] [place] [address] END OF REPORT
== END 2020-03-31 14:02 | disposition home or self-care (01) ==
LOC: D.ER 00:08 → D.M2 01:44 → OBSVTIME 01:44 → D.M2 03-31 14:02
PROVIDERS: Family Medicine; ADMIT Emergency Medicine; ATTEND Emergency Medicine
DX: I20.0 Unstable angina (principal); E87.1 Hypo-osmolality and hyponatremia; I12.9 Hypertensive chronic kidney disease with stage 1 through stage 4 chronic kidney disease, or unspecified chronic kidney disease; N18.9 Chronic kidney disease, unspecified; J44.9 Chronic obstructive pulmonary disease, unspecified; J45.909 Unspecified asthma, uncomplicated; K21.9 Gastro-esophageal reflux disease without esophagitis; F41.9 Anxiety disorder, unspecified; M19.90 Unspecified osteoarthritis, unspecified site; E78.5 Hyperlipidemia, unspecified

== ENCOUNTER 2020-04-07 20:31 | Emergency (ER) | payer MEDICARE ==
[~2020-04-07] VITALS: Ht 162.6 cm; Wt 72.7 kg
[~2020-04-07 20:31] MED LIST changes: +ALBUTEROL2.5 MG/3 M INH; +CATAPRES0.1 MG PO; +LISINOPRIL2.5 MG PO; +NORVASC5 MG PO
[2020-04-07 20:37] VITALS: Ht 162.6 cm; Wt 72.7 kg
[2020-04-07 21:38] LABS: BASOPHILS 0.8 % (0-2); EOSINOPHILS 0.9 % (0-7); HEMATOCRIT 35.5 % (36.0-48.0); HEMOGLOBIN 11.9 g/dL (12-16); IMMATURE GRANULOCYTES 0.2 % (0-5); LYMPHOCYTES 12.5 % (15-50); MCH 30.1 pg (26.0-34.0); MCHC 33.5 g/dL (31.0-37.0); MCV 89.6 fL (80.0-100.0); MEAN PLATELET VOLUME 11.3 fL (7.4-10.4); MONOCYTES 7.9 % (2-11); NEUTROPHILS 77.7 % (40-80); PLATELET COUNT 290 10x3/uL (130-400); RBC 3.96 10x6/uL (4.00-5.40); RDW 12.7 % (11.5-14.5); WBC 6.5 10x3/uL (4.8-10.8)
[2020-04-07 21:49] LABS: APTT 36.7 SECONDS (22.8-39.4); INR 1.01 (0.85-1.17); PROTIME 13.3 SECONDS (11.6-15.0)
[2020-04-07 22:00] LABS: CALC OSMOLALITY 272 mosm/kg (275-300); CALCIUM 9.2 mg/dL (8.5-10.1); CARBON DIOXIDE 27.8 mmol/L (21.0-32.0); CHLORIDE - SERUM 104 mmol/L (98-107); CREATININE - SERUM 0.8 mg/dL (0.6-1.3); GLUCOSE 111 mg/dL (74-106); SODIUM 137 mmol/L (136-145); UREA NITROGEN 6 mg/dL (7-18); eGFR NON AFRICAN AMERICAN 74 mL/min (90-120)
[2020-04-07 22:16] LABS: ALKALINE PHOSPHATASE 71 U/L (30-120); ALT (SGPT) 15 U/L (10-68); BILIRUBIN - TOTAL 0.31 mg/dL (0.2-1.3); CREATINE KINASE 50 UL (21-215); MAGNESIUM - SERUM 2.1 mg/dL (1.8-2.4); PROTEIN - SERUM 7.1 g/dL (6.4-8.2)
[2020-04-07 22:17] LABS: TROPONIN-I < 0.017 ng/mL (0.000-0.060)
[2020-04-07 23:02] VITALS: BP 131/57
== END 2020-04-07 23:29 | disposition home or self-care (01) ==
LOC: D.ER 20:31
PROVIDERS: Family Medicine
DX: F41.9 Anxiety disorder, unspecified (principal); R07.9 Chest pain, unspecified; I10 Essential (primary) hypertension; J44.9 Chronic obstructive pulmonary disease, unspecified; K21.9 Gastro-esophageal reflux disease without esophagitis